=== PATIENT | female | born 1980 | race Caucasian/White ===

== ENCOUNTER → 2017-09-04 | Outpatient (CLI) | payer BC | LOC: SUN.DIA 11:12 | DX: O24.414 Gestational diabetes mellitus in pregnancy, insulin controlled (principal); Z3A.32 32 weeks gestation of pregnancy; Z71.3 Dietary counseling and surveillance | CPT/HCPCS: G0108 ==

== ENCOUNTER 2017-09-08 11:22 | Inpatient (IN) | payer BC ==
[~2017-09-08] VITALS: Ht 170.2 cm; Wt 139.5 kg
[2017-10-15 18:43] VITALS: BP 144/71; PULSE 80; TEMP 98.3
[2017-10-15] MEDS ORDERED: PRENATAL MVI (18:47)
[2017-10-15] MEDS ORDERED: NORMODYNE100 MG PO (18:49)
[2017-10-15] MEDS ORDERED: ZYRTEC 10MG10 MG PO (18:50)
[2017-10-15] MEDS ORDERED: TYLENOL 500MG500 MG PO (18:50)
[2017-10-15] MEDS ORDERED: LEVEMIR100 U/ML (18:51)
[2017-10-15 19:30] VITALS: BP 147/75; PULSE 82
[2017-10-15 20:28] LABS: COLLECTION METHOD CLEAN CATCH
[2017-10-15 20:33] LABS: BASO % 0.2 % (0.0-2.0); EOS # 0.1 (0.0-0.7); EOS % 0.9 % (0-4.0); GRAN # 9.1 (1.4-6.5); GRAN % 73.1 % (42.2-75.2); HEMOGLOBIN 12.4 g/dl (12.5-16.0); LYMPH # 2.2 (1.2-3.4); LYMPH % 17.9 % (20.0-51.0); MEAN CELL VOLUME 91 fl (80.0-100.0); MEAN CORPUSCULAR HEMOGLOBIN 31 pg (27.0-31.0); MEAN CORPUSCULAR HGB CONC 34 g/dl (33.0-37.0); MEAN PLATELET VOLUME 10.4 fl (7.4-10.4); MONO # 0.9 (0.1-0.6); MONO % 7.4 % (1.7-9.3); PLATELET COUNT 176 K/mm3 (130-400); RED BLOOD COUNT 4.03 M/mm3 (4.10-5.30); REDCELL DISTRIBUTION WIDTH-CV 14.2 % (11.5-14.5)
[2017-10-15 20:40] LABS: MUCOUS Present /lpf; PH 6 (5-8); URINE APPEARANCE Hazy; URINE BACTERIA Rare /hpf; URINE BILIRUBIN Negative (NEGATIVE); URINE BLOOD 2+ (NEGATIVE); URINE COLOR Yellow; URINE GLUCOSE Negative (NEGATIVE); URINE KETONE Negative (NEGATIVE); URINE LEUKOCYTE ESTERASE Negative (NEGATIVE); URINE NITRATE Negative (NEGATIVE); URINE PROTEIN(semi-quant) Negative (NEGATIVE); URINE UROBILINOGEN Negative (NEGATIVE)
[2017-10-15 20:42] LABS: ALBUMIN 3.5 gm/dL (3.5-5.0); BILIRUBIN,TOTAL 0.2 mg/dL (0.0-1.0); CALCIUM 9.3 mg/dL (8.4-10.2); CREATININE, serum 0.61 mg/dL (0.52-1.25); HEMATOCRIT 36.6 % (37.0-47.0); POTASSIUM 3.9 mmol/L (3.4-5.0); TOTAL PROTEIN 7.2 gm/dL (6.4-8.2)
[2017-10-15 21:10] VITALS: BP 121/67; PULSE 84
[2017-10-15 22:10] VITALS: TEMP 98.3
[2017-10-15 23:00] VITALS: BP 138/76; PULSE 67
[2017-10-15 23:30] VITALS: BP 135/74; PULSE 80
[2017-10-16] VITALS (59 sets, daily range): BP systolic 95–144; BP diastolic 50–98; PULSE 57–98; TEMP 97.9–98.8
[2017-10-17] VITALS: BP 132/71; PULSE 73
[2017-10-17 00:30] VITALS: BP 129/66; PULSE 95
[2017-10-17 03:50] VITALS: BP 115/65; PULSE 72; TEMP 98.4
[2017-10-17 07:47] VITALS: BP 124/70; PULSE 88; TEMP 98.1
[2017-10-17] MEDS ORDERED: IBU800 M1 PO (08:20)
[2017-10-17] MEDS ORDERED: TRANDATE 100MG100 MG PO (08:21)
[2017-10-17] MEDS ORDERED: PERCOCET 325 MG1 TA2 PO (08:21)
[2017-10-17 16:20] VITALS: BP 138/78; PULSE 72; TEMP 98.1
[2017-10-17 20:30] VITALS: BP 139/89; PULSE 81; TEMP 98.4
[2017-10-18 07:20] VITALS: BP 138/77; PULSE 87; TEMP 97.5
[2017-10-18 09:24] VITALS: BP 136/78; PULSE 84; TEMP 98
== END 2017-10-18 13:15 | disposition home or self-care (01) | DRG 765 ==
LOC: LDR 10-15 13:06 → OB 10-15 18:30 → LDR 10-15 18:30 → OB 10-16 21:30 → EDSTATUS 11-05 11:21 → LDR 11-05 11:21 → EDSTATUS 11-05 13:06
PROVIDERS: Student in an Organized Health Care Education/Training Program
PROC: 10D00Z1 Extraction of Products of Conception, Low, Open Approach (ICD-10-PCS; principal; 2017-10-16)
PROC: 3E033VJ Introduction of Other Hormone into Peripheral Vein, Percutaneous Approach (ICD-10-PCS; 2017-10-16)
DX: O11.4 Pre-existing hypertension with pre-eclampsia, complicating childbirth (principal); O36.0130 Maternal care for anti-D [Rh] antibodies, third trimester, not applicable or unspecified; Z68.42 Body mass index [BMI] 45.0-49.9, adult; O10.92 Unspecified pre-existing hypertension complicating childbirth; O99.824 Streptococcus B carrier state complicating childbirth; O61.0 Failed medical induction of labor; O24.420 Gestational diabetes mellitus in childbirth, diet controlled; O40.3XX0 Polyhydramnios, third trimester, not applicable or unspecified; O69.81X0 Labor and delivery complicated by cord around neck, without compression, not applicable or unspecified; E66.01 Morbid (severe) obesity due to excess calories; O99.214 Obesity complicating childbirth; Z3A.37 37 weeks gestation of pregnancy; Z37.0 Single live birth
CPT/HCPCS: J0690; J1885; J2270; J2370; J2405; J2540; J2590; J2765; J2791; J7030

== ENCOUNTER → 2017-10-08 | Outpatient (CLI) | payer BC | LOC: SUN.DIA 08:39 | DX: O24.414 Gestational diabetes mellitus in pregnancy, insulin controlled (principal); Z3A.36 36 weeks gestation of pregnancy; Z71.3 Dietary counseling and surveillance | CPT/HCPCS: G0108 ==

== ENCOUNTER → 2017-10-15 | Outpatient (CLI) | payer BC ==
[~2017-10-15] MED LIST: LEVEMIR100 U/ML; NORMODYNE100 MG PO; PERCOCET 325 MG1 TA2 PO; PRENATAL MVI; TYLENOL 500MG500 MG PO; ZYRTEC 10MG10 MG PO
== END ==
LOC: LDRO 18:15
DX: Z01.89 Encounter for other specified special examinations (principal)